=== PATIENT | male | born 1980 | race Caucasian/White ===

== ENCOUNTER 2025-04-23 20:34 | Emergency (ER) | payer OTHER ==
[2025-04-23 20:55] VITALS: BP 134/85; PULSE 105; RESP 18; TEMP 98.1
--- NOTE | 2025-04-23 21:18 | ED ---
Alcohol HPI - General Source: patient, RN notes reviewed Mode of arrival: wheelchair Limitations: no limitations <Radha Kaur - Last Filed: 04/23/25 21:17> - General Source: patient Mode of arrival: wheelchair Limitations: no limitations - History of Present Illness MD Complaint: alcohol intoxication Last Drink: just [employer] -: minute(s) Previous Visits for Alcohol Intoxication?: Yes Recent Trauma: Yes Associated Symptoms: denies other symptoms Treatments Prior to Arrival: none Chronic Alcohol Use: Yes <Tino Polanco - Last Filed: 05/01/25 00:29> - General Chief Complaint: Alcohol Stated Complaint: weakness Time Seen by Provider: 04/23/25 21:17 - History of Present Illness Initial Comments: Quick [id number] male presenting for alcohol withdrawal. States he has been sober for the past 18 months and went on a [place] 4 days ago. States he drank approximately 1/5 today, last drink was this morning. States he is experiencing tremors and headache. States it feels like "his body is shutting down". (Radha Kaur) This is a 44 male to the ER for evaluation of acute alcohol withdrawal seizures been drinking for a few days around significant alcohol intoxication here in the emergency department patient feels unwell (Tino Polanco) - Related Data Allergies Allergy/AdvReac Type Severity Reaction Status Date / Time No Known Allergies Allergy Verified 04/23/25 20:49 Review of Systems ROS Other: All systems not noted in ROS Statement are negative. <Radha Kaur - Last Filed: 04/23/25 21:17> ROS Other: All systems not noted in ROS Statement are negative. <Tino Polanco - Last Filed: 05/01/25 00:29> ROS Statement: Those systems with pertinent positive or pertinent negative responses have been documented in the HPI. Past Medical History Additional Past Medical History / Comment(s): ETOH Past Surgical History: Hernia Repair, Tonsillectomy Past Psychological History: Depression Smoking Status: Current every day smoker Past Alcohol Use History: Daily, Heavy Past Drug Use History: None Reported <Radha Kaur - Last Filed: 04/23/25 21:17> General Exam Limitations: no limitations <Radha Kaur - Last Filed: 04/23/25 21:17> General appearance: alert, in no apparent distress Head exam: Present: atraumatic, normocephalic, normal inspection Eye exam: Present: normal appearance, PERRL, EOMI. Absent: scleral icterus, conjunctival injection, periorbital swelling ENT exam: Present: normal exam, mucous membranes moist Neck exam: Present: normal inspection. Absent: tenderness, meningismus, lymphadenopathy Respiratory exam: Present: normal lung sounds bilaterally. Absent: respiratory distress, wheezes, rales, rhonchi, stridor Cardiovascular Exam: Present: regular rate, normal rhythm, normal heart sounds. Absent: systolic murmur, diastolic murmur, rubs, gallop, clicks GI/Abdominal exam: Present: soft, normal bowel sounds. Absent: distended, tenderness, guarding, rebound, rigid Extremities exam: Present: normal inspection, full ROM, normal capillary refill. Absent: tenderness, pedal edema, joint swelling, calf tenderness Back exam: Present: normal inspection Neurological exam: Present: alert, oriented X3, CN II-XII intact Psychiatric exam: Present: normal affect, normal mood Skin exam: Present: warm, dry, intact, normal color. Absent: rash <Tino Polanco - Last Filed: 05/01/25 00:29> - General Exam Comments Initial Comments: Visual Physical Exam Vital signs reviewed General: Well-appearing, nontoxic, no acute distress. Head: Normocephalic, atraumatic Eyes: PERRLA, EOMI ENT: Airway patent Chest: Nonlabored breathing Skin: No visual rash, normal skin tone Neuro: Alert and oriented 3 Musculoskeletal: No gross abnormalities (Radha Kaur) Course <Tino Polanco - Last Filed: 05/01/25 00:29> Vital Signs 04/23/25 20:50 Temperature 98.1 F Pulse Rate 105 H Respiratory 18 Rate Blood Pressure 134/85 O2 Sat by Pulse 93 L Oximetry - Reevaluation(s) Reevaluation #1: 04/24/25 00:07 Medical record is reviewed she (Tino Polanco) Reevaluation #2: 04/24/25 00:08 Patient symptoms improved here in the ER (Tino Polanco) Reevaluation #3: 04/24/25 00:08 Patient informed of results questions answered (Tino Polanco) Reevaluation #4: Was pt. sent in by a medical professional or institution ([facility], [facility], urgent care, hospital, or group home...) When possible be specific @ -no Did you speak to anyone other than the patient for history (EMS, parent, family, police, friend...)? What history was obtained from this source @ -no Did you review nursing and triage notes (agree or disagree)? Why? @ -agree Are old charts reviewed (outside hosp., previous admission, EMS record, old EKG, old radiological studies, urgent care reports/EKG's, group home records)? Report findings @ -yes Differential Diagnosis (chest pain, altered mental status, abdominal pain women, abdominal pain men, vaginal bleeding, weakness, fever, dyspnea, syncope, headache, dizziness, GI bleed, back pain, seizure, CVA, palpatations, mental health, musculoskeletal)? @ -prior EKG interpreted by me (3pts min.). @ -no X-rays interpreted by me (1pt min.). @ -no CT interpreted by me (1pt min.). @ -no U/S interpreted by me (1pt. min.). @ -no What testing was considered but not performed or refused? (CT, X-rays, U/S, labs)? Why? @ -none What meds were considered but not given or refused? Why? @ -none Did you discuss the management of the patient with other professionals (professionals i.e. [facility], [facility], lab, RT, psych nurse, case management social worker, design consultant, teacher, promotion officer, transplant case manager)? Give summary @ -no Was smoking cessation discussed for >3mins.? @ -no Was critical care preformed (if so, how long)? @ -no Were there social determinants of health that impacted care today? How? (Homelessness, low income, unemployed, alcoholism, drug addiction, transportation, low edu. Level, literacy, decrease access to med. care, [facility], rehab)? @ -none Was there de-escalation of care discussed even if they declined (Discuss DNR or withdrawal of care, Hospice)? DNR status @ -no What co-morbidities impacted this encounter? (DM, HTN, Smoking, COPD, CAD, Cancer, CVA, ARF, Chemo, Hep., AIDS, mental health diagnosis, sleep apnea, morbid obesity)? @ -none Was patient admitted / discharged? Hospital course, mention meds given and route, prescriptions, significant lab abnormalities, going to OR and other pertinent info. @ - 44 male feeling weak here in the ER, patient has alcohol intoxication dehydration with normal electrolytes symptoms improved patient can be discharged home Discharge Undiagnosed new problem with uncertain prognosis? @ -no Drug Therapy requiring intensive monitoring for toxicity (Heparin, Nitro, Insulin, Cardizem)? @ -no Were any procedures done? @ -no Diagnosis/symptom? @ -Alcohol intoxication Acute, or Chronic, or Acute on Chronic? @ -Acute Uncomplicated (without systemic symptoms) or Complicated (systemic symptoms)? @ -Complicated Side effects of treatment? @ -no Exacerbation, Progression, or Severe Exacerbation? @ -exacerbation Poses a threat to life or bodily function? How? (Chest pain, [place], [place], pneumonia, PE, COPD, DKA, ARF, appy, cholecystitis, CVA, Diverticulitis, Homicidal, Suicidal, threat to staff... and all critical care pts) @ -no (Tino Polanco) Reevaluation #5: Differential Altered Mental Status: Hypoglycemia, DKA, hypercapnia, ETOH, overdose, CO poisoning, trauma, myxedema coma, HTN encephalopathy, infection, encephalitis, psychosis, intercranial hem orrhage, hepatic encephalopathy, meningitis, CVA, this is not meant to be an all-inclusive list (Tino Polanco) Medical Decision Making <Radha Kaur - Last Filed: 04/23/25 21:17> - Lab Data Result diagrams: 04/23/25 21:43 04/23/25 21:43 - EKG Data -: EKG Interpreted by Me (EKG is sinus 85 WA 168 QRS 92 QTc 395) <Tino Polanco - Last Filed: 05/01/25 00:29> - Medical Decision Making I completed the quick note portion of this chart signed Radha Kaur PA-C (Radha Kaur) 44 male feeling weak here in the ER, patient has alcohol intoxication dehydration with normal electrolytes symptoms improved patient can be discharged home (Tino Polanco) - Lab Data Lab Results 04/23/25 04/23/25 Range/Units 21:43 21:43 WBC 5.97 (4.50-10.00) 10*3/uL RBC 5.46 (4.40-5.60) 10*6/uL Hgb 16.5 (13.0-17.0) g/dL Hct 46.1 (39.6-50.0) % MCV 84.4 (80.0-97.0) fL MCH 30.2 (27.0-32.0) pg MCHC 35.8 (32.0-37.0) g/dL Plt Count 188 (140-440) 10*3/uL MPV 8.4 L (9.5-12.2) fL Immature Gran % (Auto) 0.7 % Neutrophils % 51.1 % Lymphocytes % 40.4 % Monocytes % 6.2 % Eosinophils % 1.3 % Basophils % 0.3 % Immature Gran # 0.04 (0.00-0.04) 10*3/uL Neutrophils # 3.05 (1.80-7.70) 10*3/uL Lymphocytes # 2.41 (0.90-5.00) 10*3/uL Monocytes # 0.37 (0.20-1.00) 10*3/uL Eosinophils # 0.08 (0.04-0.35) 10*3/uL Basophils # 0.02 (0.00-0.10) 10*3/uL Sodium 146 H (137-145) mmol/L Potassium 3.9 (3.5-5.1) mmol/L Chloride 105 (98-107) mmol/L Carbon Dioxide 24 (22-30) mmol/L Anion Gap 17 mmol/L BUN 14 (9-20) mg/dL Creatinine 0.69 (0.66-1.25) mg/dL Est GFR (CKD-EPI)AfAm >90 (>60 ml/min/1.73 sqM) Est GFR (CKD-EPI)NonAf >90 (>60 ml/min/1.73 sqM) Glucose 111 H (74-99) mg/dL Calcium 8.9 (8.4-10.2) mg/dL Phosphorus 3.9 (2.5-4.5) mg/dL Magnesium 1.8 (1.6-2.3) mg/dL Total Bilirubin 0.5 (0.2-1.3) mg/dL AST 30 (17-59) U/L ALT 27 (4-49) U/L Alkaline Phosphatase 76 (38-126) U/L Total Protein 7.6 (6.3-8.2) g/dL Albumin 4.9 (3.5-5.0) g/dL Serum Alcohol 238 H* mg/dL Disposition <Radha Kaur - Last Filed: 04/23/25 21:17> Is patient prescribed a controlled substance at d/c from ED?: No Time of Disposition: 23:55 <Tino Polanco - Last Filed: 05/01/25 00:29> Clinical Impression: Alcoholic intoxication Disposition: HOME SELF-CARE Condition: Fair Instructions (If sedation given, give patient instructions): Alcohol Intoxication (ED) Referrals: None,Stated [Primary Care Provider] - 1-2 days
[2025-04-23 22:06] LABS: Basophils # (A) 0.02 10*3/uL (0.00-0.10); Basophils % (A) 0.3 %; Eosinophils # (A) 0.08 10*3/uL (0.04-0.35); Eosinophils % (A) 1.3 %; HCT 46.1 % (39.6-50.0); HGB 16.5 g/dL (13.0-17.0); Lymphocytes # (A) 2.41 10*3/uL (0.90-5.00); Lymphocytes % (A) 40.4 %; MCH 30.2 pg (27.0-32.0); MCHC 35.8 g/dL (32.0-37.0); MCV 84.4 fL (80.0-97.0); Mean Platelet Volume 8.4 fL (9.5-12.2); Monocytes # (A) 0.37 10*3/uL (0.20-1.00); Monocytes % (A) 6.2 %; Neutrophils # (A) 3.05 10*3/uL (1.80-7.70); Neutrophils % (A) 51.1 %; Platelet Count 188 10*3/uL (140-440); RBC 5.46 10*6/uL (4.40-5.60); RDW 13.4 % (11.5-14.5); WBC 5.97 10*3/uL (4.50-10.00)
[2025-04-23 22:17] LABS: ALT 27 U/L (4-49); AST 30 U/L (17-59); African American GFR (CKD) >90 (>60 ml/min/1.73 sqM); Albumin 4.9 g/dL (3.5-5.0); Alkaline Phosphatase 76 U/L (38-126); Anion Gap 17 mmol/L; Blood Urea Nitrogen 14 mg/dL (9-20); Calcium 8.9 mg/dL (8.4-10.2); Carbon Dioxide 24 mmol/L (22-30); Chloride 105 mmol/L (98-107); Glucose 111 mg/dL (74-99); Magnesium 1.8 mg/dL (1.6-2.3); Non-African American GFR(CKD) >90 (>60 ml/min/1.73 sqM); Phosphorus 3.9 mg/dL (2.5-4.5); Potassium 3.9 mmol/L (3.5-5.1); Sodium 146 mmol/L (137-145); Total Bilirubin 0.5 mg/dL (0.2-1.3); Total Protein 7.6 g/dL (6.3-8.2)
[2025-04-23 22:23] LABS: Alcohol 238 mg/dL
[2025-04-24] MEDS: ONDANSETRON 4 MG/2 ML VIAL IVP STA (00:28)
[2025-04-24] MEDS: LORazepam 1 MG/0.5 ML VIAL IV STA (00:28)
[2025-04-24] MEDS: SODIUM CHLORIDE 0.9% 1,000 ML IV SCH (00:33)
== END 2025-04-24 00:44 | disposition home or self-care (01) ==
LOC: EC 20:34
DX: F10.129 Alcohol abuse with intoxication, unspecified (principal); F17.200 Nicotine dependence, unspecified, uncomplicated; Y90.7 Blood alcohol level of 200-239 mg/100 ml
CPT/HCPCS: 36415; 93005; 80053; 83735; 84100; 85025; 99284; 96374; 96375; G0480; J2060; J2405; 80320